=== PATIENT | female | born 1945 | race Caucasian/White ===

== ENCOUNTER 2016-09-19 18:26 | Emergency (ER) | payer MEDICARE, BC ==
[2016-09-19 18:41] VITALS: RESP 18; TEMP 98.4
[2016-09-19 19:03] LABS: APPEARANCE,URINE Slightly Cloudy; BILIRUBIN,URINE NEGATIVE (NEGATIVE); COLOR,URINE Yellow; GLUCOSE, URINE (UA) NEGATIVE (NEGATIVE); KETONES,URINE NEGATIVE (NEGATIVE); LEUKOCYTE ESTERASE ,URINE 3+ (NEGATIVE); NITRATE,URINE NEGATIVE (NEGATIVE); OCCULT BLOOD,URINE 1+ (NEG-TRACE)
[2016-09-19 19:09] LABS: WBC,URINE TNTC (0-5AV/HPF)
[2016-09-19 20:18] LABS: CALCIUM 9.1 mg/dl (8.5-10.1); POTASSIUM 3.7 mMol/L (3.5-5.1)
[2016-09-19 21:07] VITALS: BP 169/66; PULSE 62; O2SAT 99
== END 2016-09-19 20:56 | disposition home or self-care (01) | DRG 690 ==
LOC: ED 18:26
DX: N39.0 Urinary tract infection, site not specified (principal)
CPT/HCPCS: 80048; 81001; 87077; 87088; 87186; 99283

== ENCOUNTER 2016-10-20 15:04 | Outpatient (CLI) | payer MEDICARE, BC ==
[2016-09-19 21:07] VITALS: O2SAT 99
== END 2016-10-20 15:05 | disposition home or self-care (01) | DRG 558 ==
LOC: CONVCARE 15:04
PROVIDERS: ATTEND Orthopaedic Surgery
DX: M70.61 Trochanteric bursitis, right hip (principal)
CPT/HCPCS: 73502

== ENCOUNTER 2017-05-03 08:49 | Day surgery (SDC) | payer MEDICARE, BC ==
[2017-05-03] MEDS ORDERED: PROPOFOL 500 MG/50 ML EMU IV ONE (10:22)
[2017-05-03 11:46] VITALS: BP 160/68; PULSE 72; RESP 20; TEMP 98.4; O2SAT 100
== END 2017-05-03 12:10 | disposition home or self-care (01) | DRG 392 ==
LOC: SURG 08:49
PROVIDERS: ATTEND Surgery
DX: R19.5 Other fecal abnormalities (principal); K51.40 Inflammatory polyps of colon without complications; D12.5 Benign neoplasm of sigmoid colon; D12.3 Benign neoplasm of transverse colon
CPT/HCPCS: J2704

== ENCOUNTER 2017-08-03 12:21 | Outpatient (CLI) | payer MEDICARE, BC ==
[2017-05-03 11:46] VITALS: O2SAT 100
== END 2017-08-03 12:22 | disposition home or self-care (01) | DRG 554 ==
LOC: CONVCARE 12:21
PROVIDERS: ATTEND Orthopaedic Surgery
DX: M16.11 Unilateral primary osteoarthritis, right hip (principal); G56.02 Carpal tunnel syndrome, left upper limb

== ENCOUNTER 2017-08-17 07:02 | Day surgery (SDC) | payer MEDICARE, BC ==
[2017-08-17] MEDS ORDERED: FENTANYL 100MCG/2ML SOL ONE (07:35)
[2017-08-17] MEDS ORDERED: ONDANSETRON HCL 4 MG/2 ML SOL ONE (07:35)
[2017-08-17] MEDS ORDERED: PROPOFOL 500 MG/50 ML EMU IV ONE (07:35)
[2017-08-17] MEDS ORDERED: MIDAZOLAM 2 MG/2 ML SOL ONE (07:35)
[2017-08-17] MEDS ORDERED: LIDOCAINE HCL 2% MPF SOL ONE (07:42)
[2017-08-17] MEDS ORDERED: BUPIVACAINE HCL 0.5% MPF 10 ML SOL ONE (07:44)
[2017-08-17 09:06] VITALS: O2SAT 100
[2017-08-17 09:26] VITALS: BP 184/66; PULSE 61; RESP 18; TEMP 97.4
== END 2017-08-17 10:11 | disposition home or self-care (01) | DRG 74 ==
LOC: SURG 07:02
PROVIDERS: ATTEND Orthopaedic Surgery
DX: G56.02 Carpal tunnel syndrome, left upper limb (principal); E11.9 Type 2 diabetes mellitus without complications
CPT/HCPCS: 82962; J2250; J2405; J3010; A6402; J2704

== ENCOUNTER 2017-11-11 03:11 | Inpatient (IN) | payer MEDICARE, BC ==
[2017-11-11 03:42] LABS: BASOPHILS % (AUTO) 1 % (0-3); EOSINOPHILS % (AUTO) 0 % (0-9); HEMATOCRIT 35 % (35-47); MEAN CORPUSCULAR HGB CONC 34.9 gm/dl (32.0-36.0); MEAN CORPUSCULAR VOLUME 94 fL (81-99); MONOCYTES % (AUTO) 6.6 % (0-12); NEUTROPHILS % (AUTO) 85.5 % (37-80)
[2017-11-11 03:54] LABS: ALBUMIN 3.7 gm/dl (3.4-5.0); CALCIUM 9.2 mg/dl (8.5-10.1); POTASSIUM 3.2 mMol/L (3.5-5.1)
[2017-11-11] MEDS ORDERED: SODIUM CHLORIDE/KCL 20MEQ 1,000 ML IV SCH (04:30)
[2017-11-11] MEDS: PROCHLORPERAZINE EDISYLATE 5 MG/ML SOL IV PRN ×2 (05:24→10:56)
[2017-11-11] MEDS: MORPHINE SULFATE 10 MG/ML SOL IV PRN ×2 (05:24→09:48)
[2017-11-11] MEDS: ENOXAPARIN 30 MG SOL SC SCH ×2 (05:46→08:55)
[2017-11-11] MEDS: LEVOTHYROXINE SODIUM 50 MCG TAB PO SCH (06:09)
[2017-11-11] MEDS ORDERED: OMEPRAZOLE 20 MG CAPSULE PO SCH (07:00)
[2017-11-11 07:06] LABS: APPEARANCE,URINE Clear; BILIRUBIN,URINE NEGATIVE (NEGATIVE); COLOR,URINE Yellow; GLUCOSE, URINE (UA) TRACE (NEGATIVE); KETONES,URINE NEGATIVE (NEGATIVE); LEUKOCYTE ESTERASE ,URINE NEGATIVE (NEGATIVE); NITRATE,URINE NEGATIVE (NEGATIVE); OCCULT BLOOD,URINE NEGATIVE (NEG-TRACE); UROBILINOGEN,URINE 0.2 (0.2-1.0 EU)
[2017-11-11 07:16] LABS: RBC,URINE 0-2 (0-3AV/HPF); WBC,URINE 0-2 (0-5AV/HPF)
[2017-11-11] MEDS: FUROSEMIDE 20 MG TAB PO SCH (08:53)
[2017-11-11] MEDS: FERROUS GLUCONATE 324 MG TABLET PO SCH (08:54)
[2017-11-11] MEDS: CLONAZEPAM 0.5 MG TAB PO SCH ×3 (08:54→21:22)
[2017-11-11] MEDS: PANTOPRAZOLE SODIUM 40 MG ECT PO SCH (08:54)
[2017-11-11] MEDS: CITALOPRAM 20 MG TAB PO SCH (08:54)
[2017-11-11] MEDS: POTASSIUM CHLORIDE 10 MEQ TER PO SCH (08:54)
[2017-11-11] MEDS: CALCIUM CARBONATE 500 MG TAB PO SCH ×2 (08:54→21:24)
[2017-11-11] MEDS: METOPROLOL TARTRATE 50 MG TAB PO SCH (08:54)
[2017-11-11] MEDS: VANCOMYCIN HCL 125 MG CAP PO SCH ×4 (08:55→21:23)
[2017-11-11] MEDS ORDERED: LEVOTHYROXINE SODIUM PO SCH (09:00)
[2017-11-11] MEDS: ONDANSETRON HCL 4 MG/2 ML SOL IV PRN ×2 (09:15→20:17)
[2017-11-11] MEDS: FEBUXOSTAT 40 MG PO SCH (09:16)
[2017-11-11] MEDS: FENOFIBRATE 145 MG TAB PO SCH (09:16)
[2017-11-11] MEDS ORDERED: SODIUM CHLORIDE 0.9% 1000ML 1,000 ML IV SCH (11:30)
[2017-11-11 13:09] LABS: ALBUMIN 3.5 gm/dl (3.4-5.0); CALCIUM 8.8 mg/dl (8.5-10.1); POTASSIUM 3.9 mMol/L (3.5-5.1)
[2017-11-11] MEDS: SODIUM CHLORIDE 0.9% 1000ML 1,000 ML IV SCH (19:07)
[2017-11-11] MEDS: SIMVASTATIN 20 MG TAB PO SCH (21:22)
[2017-11-11] MEDS: UBIDECARENONE 100 MG CAPSULE PO SCH (21:24)
[2017-11-11] MEDS: EZETIMIBE 10 MG TAB PO SCH (21:24)
[2017-11-11] MEDS: NORTRIPTYLINE HCL 25 MG CAP PO SCH (21:25)
[2017-11-11] MEDS: NORTRIPTYLINE HCL 75 MG PO SCH (21:25)
[2017-11-11] MEDS: LOSARTAN POTASSIUM 50 MG TAB PO SCH (21:41)
[2017-11-11] MEDS: METOPROLOL TARTRATE 25 MG TAB PO SCH (21:41)
[2017-11-12] MEDS: SODIUM CHLORIDE 0.9% 1000ML 1,000 ML IV SCH ×4 (01:13→18:26)
[2017-11-12] MEDS: LEVOTHYROXINE SODIUM 50 MCG TAB PO SCH (06:22)
[2017-11-12 07:47] LABS: BASOPHILS % (AUTO) 1 % (0-3); EOSINOPHILS % (AUTO) 1 % (0-9); HEMATOCRIT 32 % (35-47); MEAN CORPUSCULAR HGB CONC 33.5 gm/dl (32.0-36.0); MEAN CORPUSCULAR VOLUME 97 fL (81-99); MONOCYTES % (AUTO) 7.5 % (0-12); NEUTROPHILS % (AUTO) 83.1 % (37-80)
[2017-11-12 07:53] LABS: POTASSIUM 3.6 mMol/L (3.5-5.1)
[2017-11-12] MEDS: POTASSIUM CHLORIDE 10 MEQ TER PO SCH (09:09)
[2017-11-12] MEDS: FUROSEMIDE 20 MG TAB PO SCH (09:09)
[2017-11-12] MEDS: METOPROLOL TARTRATE 50 MG TAB PO SCH (09:09)
[2017-11-12] MEDS: PANTOPRAZOLE SODIUM 40 MG ECT PO SCH (09:09)
[2017-11-12] MEDS: CITALOPRAM 20 MG TAB PO SCH (09:10)
[2017-11-12] MEDS: ENOXAPARIN 30 MG SOL SC SCH (09:10)
[2017-11-12] MEDS: CLONAZEPAM 0.5 MG TAB PO SCH ×3 (09:10→20:43)
[2017-11-12] MEDS: UBIDECARENONE 100 MG CAPSULE PO SCH ×2 (09:11→20:45)
[2017-11-12] MEDS: FERROUS GLUCONATE 324 MG TABLET PO SCH (09:11)
[2017-11-12] MEDS: FENOFIBRATE 145 MG TAB PO SCH (09:12)
[2017-11-12] MEDS: CALCIUM CARBONATE 500 MG TAB PO SCH ×2 (09:12→20:44)
[2017-11-12] MEDS: FEBUXOSTAT 40 MG PO SCH (09:12)
[2017-11-12] MEDS: VANCOMYCIN HCL 125 MG CAP PO SCH ×2 (09:15→14:25)
[2017-11-12] MEDS ORDERED: CEFTRIAXONE 1 GM PDS 1 GM in SODIUM CHLORIDE 0.9% 50 ML 50 ML IV SCH ×2 (11:00→12:00)
[2017-11-12] MEDS ORDERED: DOXYCYCLINE 100 MG PDS 100 MG in SODIUM CHLORIDE 0.9% 100 ML 100 ML IV SCH (11:00)
[2017-11-12] MEDS ORDERED: DOXYCYCLINE 100 MG IV ONE (12:16)
[2017-11-12] MEDS ORDERED: SODIUM CHLORIDE 0.9% 100 ML 100 ML IV ONE (12:16)
[2017-11-12] MEDS: DOXYCYCLINE 100 MG PDS 100 MG in SODIUM CHLORIDE 0.9% 100 ML 100 ML IV SCH (12:23)
[2017-11-12] MEDS ORDERED: SODIUM CHLORIDE 0.9% 50 ML 50 ML IV ONE (14:16)
[2017-11-12] MEDS ORDERED: CEFTRIAXONE 1 GM PDS ONE (14:16)
[2017-11-12] MEDS: LOSARTAN POTASSIUM 50 MG TAB PO SCH (20:43)
[2017-11-12] MEDS: EZETIMIBE 10 MG TAB PO SCH (20:44)
[2017-11-12] MEDS: SIMVASTATIN 20 MG TAB PO SCH (20:44)
[2017-11-12] MEDS: METOPROLOL TARTRATE 25 MG TAB PO SCH (20:45)
[2017-11-12] MEDS: NORTRIPTYLINE HCL 25 MG CAP PO SCH (20:46)
[2017-11-12] MEDS: NORTRIPTYLINE HCL 75 MG PO SCH (20:46)
[2017-11-13] MEDS ORDERED: DOXYCYCLINE 100 MG IV ONE (00:37)
[2017-11-13] MEDS ORDERED: SODIUM CHLORIDE 0.9% 100 ML 100 ML IV ONE (00:37)
[2017-11-13] MEDS: DOXYCYCLINE 100 MG PDS 100 MG in SODIUM CHLORIDE 0.9% 100 ML 100 ML IV SCH (00:58)
[2017-11-13] MEDS: SODIUM CHLORIDE 0.9% 1000ML 1,000 ML IV SCH ×3 (04:08→16:09)
[2017-11-13] MEDS: LEVOTHYROXINE SODIUM 50 MCG TAB PO SCH (06:11)
[2017-11-13 07:35] LABS: BASOPHILS % (AUTO) 1 % (0-3); EOSINOPHILS % (AUTO) 3 % (0-9); HEMATOCRIT 28 % (35-47); MEAN CORPUSCULAR VOLUME 97 fL (81-99); MONOCYTES % (AUTO) 8.9 % (0-12); NEUTROPHILS % (AUTO) 81.3 % (37-80)
[2017-11-13 07:36] LABS: ALBUMIN 2.5 gm/dl (3.4-5.0); CALCIUM 7.9 mg/dl (8.5-10.1); POTASSIUM 3.1 mMol/L (3.5-5.1)
[2017-11-13] MEDS: CLONAZEPAM 0.5 MG TAB PO SCH ×3 (08:09→20:38)
[2017-11-13] MEDS: FENOFIBRATE 145 MG TAB PO SCH (08:28)
[2017-11-13] MEDS: FEBUXOSTAT 40 MG PO SCH (08:28)
[2017-11-13] MEDS: UBIDECARENONE 100 MG CAPSULE PO SCH ×2 (08:29→20:45)
[2017-11-13] MEDS: CITALOPRAM 20 MG TAB PO SCH (08:32)
[2017-11-13] MEDS: POTASSIUM CHLORIDE 10 MEQ TER PO SCH (08:33)
[2017-11-13] MEDS: FERROUS GLUCONATE 324 MG TABLET PO SCH (08:33)
[2017-11-13] MEDS: METOPROLOL TARTRATE 50 MG TAB PO SCH (08:34)
[2017-11-13] MEDS: FUROSEMIDE 20 MG TAB PO SCH (08:34)
[2017-11-13] MEDS: CALCIUM CARBONATE 500 MG TAB PO SCH ×2 (08:34→20:39)
[2017-11-13] MEDS: PANTOPRAZOLE SODIUM 40 MG ECT PO SCH (08:35)
[2017-11-13] MEDS ORDERED: POTASSIUM CHLORIDE 2 MEQ/ML 30 MEQ, LIDOCAINE HCL 1% MDV 2 ML in SODIUM CHLORIDE 0.9% 5... IV ONE (08:50)
[2017-11-13] MEDS ORDERED: POTASSIUM CHLORIDE 2 MEQ/ML SOL IV ONE (09:52)
[2017-11-13] MEDS ORDERED: LIDOCAINE HCL 1% MPF SOL ONE (09:54)
[2017-11-13] MEDS: SODIUM CHLORIDE 0.9% FLUSH 10 ML SOL IV SCH ×3 (10:09→17:56)
[2017-11-13] MEDS: NORTRIPTYLINE HCL 25 MG CAP PO SCH (20:39)
[2017-11-13] MEDS: METOPROLOL TARTRATE 25 MG TAB PO SCH (20:39)
[2017-11-13] MEDS: NORTRIPTYLINE HCL 75 MG PO SCH (20:39)
[2017-11-13] MEDS: LOSARTAN POTASSIUM 50 MG TAB PO SCH (20:39)
[2017-11-13] MEDS: SIMVASTATIN 20 MG TAB PO SCH (20:40)
[2017-11-13] MEDS: EZETIMIBE 10 MG TAB PO SCH (20:40)
[2017-11-14] MEDS: SODIUM CHLORIDE 0.9% FLUSH 10 ML SOL IV SCH ×2 (02:40→09:17)
[2017-11-14] MEDS: LEVOTHYROXINE SODIUM 50 MCG TAB PO SCH (06:24)
[2017-11-14 07:32] LABS: CALCIUM 8.3 mg/dl (8.5-10.1); POTASSIUM 3.2 mMol/L (3.5-5.1)
[2017-11-14 07:37] LABS: BASOPHILS % (AUTO) 1 % (0-3); EOSINOPHILS % (AUTO) 5 % (0-9); HEMATOCRIT 29 % (35-47); MEAN CORPUSCULAR HGB CONC 35.1 gm/dl (32.0-36.0); MEAN CORPUSCULAR VOLUME 93 fL (81-99); MONOCYTES % (AUTO) 10.9 % (0-12); NEUTROPHILS % (AUTO) 68.7 % (37-80)
[2017-11-14] MEDS ORDERED: POTASSIUM CHLORIDE 2 MEQ/ML 40 MEQ, LIDOCAINE HCL 1% MDV 2 ML in SODIUM CHLORIDE 0.9% 5... IV ONE (08:51)
[2017-11-14] MEDS: UBIDECARENONE 100 MG CAPSULE PO SCH (09:00)
[2017-11-14] MEDS: CLONAZEPAM 0.5 MG TAB PO SCH ×2 (09:00→16:29)
[2017-11-14] MEDS: FUROSEMIDE 20 MG TAB PO SCH (09:01)
[2017-11-14] MEDS: FENOFIBRATE 145 MG TAB PO SCH (09:01)
[2017-11-14] MEDS: CITALOPRAM 20 MG TAB PO SCH (09:02)
[2017-11-14] MEDS: PANTOPRAZOLE SODIUM 40 MG ECT PO SCH (09:02)
[2017-11-14] MEDS: FERROUS GLUCONATE 324 MG TABLET PO SCH (09:02)
[2017-11-14] MEDS: FEBUXOSTAT 40 MG PO SCH (09:02)
[2017-11-14] MEDS: CALCIUM CARBONATE 500 MG TAB PO SCH (09:02)
[2017-11-14] MEDS: METOPROLOL TARTRATE 50 MG TAB PO SCH (09:02)
[2017-11-14] MEDS: POTASSIUM CHLORIDE 10 MEQ TER PO SCH (09:02)
[2017-11-14] MEDS ORDERED: LIDOCAINE HCL 1% MPF SOL ONE (09:09)
[2017-11-14] MEDS ORDERED: POTASSIUM CHLORIDE 2 MEQ/ML SOL IV ONE (09:10)
[2017-11-14 18:18] VITALS: BP 150/89; PULSE 77; RESP 18; TEMP 96.3; O2SAT 96
== END 2017-11-14 18:00 | disposition home or self-care (01) | DRG 438 ==
LOC: ED 03:11 → UNDOADMOB 04:27 → INTOOBSV 04:27 → ACUTE CARE 04:27 → UNDOADMOB 11-12 04:27 → INTOOBSV 11-12 11:30 → OBSVTOIN 11-12 11:30
PROVIDERS: ADMIT Family Medicine; ATTEND Family Medicine
DX: K85.90 Acute pancreatitis without necrosis or infection, unspecified (principal); J18.9 Pneumonia, unspecified organism; N17.9 Acute kidney failure, unspecified; N18.4 Chronic kidney disease, stage 4 (severe); K92.1 Melena; E11.22 Type 2 diabetes mellitus with diabetic chronic kidney disease; A08.39 Other viral enteritis; E87.6 Hypokalemia; R19.7 Diarrhea, unspecified
CPT/HCPCS: 36415; 71250; 74019; 74176; 80048; 80053; 81001; 82272; 82962; 84132; 85025; 87040; 94664; 99070; 99218; 99225; 99283; J0696; J0780; J2270; J2405; J3480; A9270; A9270-GY; J1650; J2001; J3490

== ENCOUNTER 2017-12-14 14:11 | Outpatient (CLI) | payer MEDICARE, BC ==
[2017-11-14 18:18] VITALS: O2SAT 96
== END 2017-12-14 14:12 | disposition home or self-care (01) | DRG 950 ==
LOC: CONVCARE 14:11
PROVIDERS: ATTEND Orthopaedic Surgery
DX: S70.01XD Contusion of right hip, subsequent encounter (principal); S92.351D Displaced fracture of fifth metatarsal bone, right foot, subsequent encounter for fracture with routine healing
CPT/HCPCS: 73502; 73630

== ENCOUNTER 2018-01-11 14:49 | Outpatient (CLI) | payer MEDICARE, BC ==
[2017-11-14 18:18] VITALS: O2SAT 96
== END 2018-01-11 14:50 | disposition home or self-care (01) | DRG 561 ==
LOC: CONVCARE 14:49
PROVIDERS: ATTEND Orthopaedic Surgery
DX: S92.351D Displaced fracture of fifth metatarsal bone, right foot, subsequent encounter for fracture with routine healing (principal); M70.61 Trochanteric bursitis, right hip; S70.01XD Contusion of right hip, subsequent encounter
CPT/HCPCS: 73630

== ENCOUNTER 2018-02-11 09:13 | Emergency (ER) | payer MEDICARE, BC ==
[2018-02-11 09:26] VITALS: BP 132/74; PULSE 76; RESP 16; TEMP 97.5; O2SAT 98
== END 2018-02-11 09:55 | disposition home or self-care (01) | DRG 603 ==
LOC: ED 09:13
DX: L03.116 Cellulitis of left lower limb (principal); E11.9 Type 2 diabetes mellitus without complications
CPT/HCPCS: 99282

== ENCOUNTER 2018-03-01 13:32 | Outpatient (CLI) | payer MEDICARE, BC ==
[2018-02-11 09:26] VITALS: O2SAT 98
== END 2018-03-01 13:33 | disposition home or self-care (01) | DRG 561 ==
LOC: CONVCARE 13:32
PROVIDERS: ATTEND Orthopaedic Surgery
DX: S92.351D Displaced fracture of fifth metatarsal bone, right foot, subsequent encounter for fracture with routine healing (principal); Z51.89 Encounter for other specified aftercare
CPT/HCPCS: 73630

== ENCOUNTER 2018-04-01 16:46 | Emergency (ER) | payer MEDICARE, BC ==
[2018-04-01] MEDS ORDERED: NITROGLYCERIN 0.4 MG TAB SL PRN (17:23)
[2018-04-01] MEDS ORDERED: NITROGLYCERIN 0.4 MG TAB SL ONE (17:24)
[2018-04-01 17:45] LABS: BASOPHILS % (AUTO) 0 % (0-3); EOSINOPHILS % (AUTO) 1 % (0-9); HEMATOCRIT 35 % (35-47); HEMOGLOBIN 11.5 gm/dl (12.0-15.5); LYMPHOCYTES % (AUTO) 8.675 % (10-50); MEAN CORPUSCULAR HEMOGLOBIN 31.3 pg (27.0-32.0); MEAN CORPUSCULAR VOLUME 95 fL (81-99); MONOCYTES % (AUTO) 2.2 % (0-12); NEUTROPHILS % (AUTO) 87.3 % (37-80)
[2018-04-01 18:14] LABS: THYROID STIMULATING HORMONE 2.183 uIU/ml (0.358-3.740); TROP I < 0.017 ng/ml (0.000-0.056)
[2018-04-01 18:15] LABS: CALCIUM 9.4 mg/dl (8.5-10.1); CARBON DIOXIDE 24.2 mEq/L (21-32); CREATININE 2.01 mg/dl (0.60-1.00); POTASSIUM 3.5 mMol/L (3.5-5.1)
[2018-04-01 18:16] LABS: ALBUMIN 4.4 gm/dl (3.4-5.0); BILIRUBIN,TOTAL 0.9 mg/dl (0.2-1.0); TOTAL PROTEIN 8.1 gm/dl (6.4-8.2)
[2018-04-01 18:35] LABS: APPEARANCE,URINE Clear; BILIRUBIN,URINE NEGATIVE (NEGATIVE); COLOR,URINE Yellow; GLUCOSE, URINE (UA) TRACE (NEGATIVE); KETONES,URINE NEGATIVE (NEGATIVE); LEUKOCYTE ESTERASE ,URINE NEGATIVE (NEGATIVE); NITRATE,URINE NEGATIVE (NEGATIVE); OCCULT BLOOD,URINE NEGATIVE (NEG-TRACE); PH,URINE 5.5; UROBILINOGEN,URINE 0.2 (0.2-1.0 EU)
[2018-04-01] MEDS ORDERED: ACETAMINOPHEN 500 MG 500 MG TAB PO ONE (18:46)
[2018-04-01] MEDS ORDERED: ACETAMINOPHEN 500 MG 500 MG TAB ONE (18:50)
[2018-04-01 19:36] LABS: BACTERIA TRACE (< 1+); CRYSTALS NEGATIVE (0-3 AVE/HPF); EPITHELIAL CELLS NEGATIVE (SQUAMOUS); RBC,URINE NEGATIVE (0-3AV/HPF); WBC,URINE NEGATIVE (0-5AV/HPF)
[2018-04-01 19:42] VITALS: RESP 20
[2018-04-01] MEDS ORDERED: PIPERACILLIN/TAZOBACT 3.375 GM PDS IV ONE (19:58)
[2018-04-01] MEDS ORDERED: PIPERACILLIN/TAZOBACT 3.375 GM 3 GM in SODIUM CHLORIDE 0.9% 100 ML 100 ML IV SCH (20:00)
[2018-04-01] MEDS ORDERED: IBUPROFEN 600 MG TAB ONE (20:42)
[2018-04-01] MEDS ORDERED: IBUPROFEN 600 MG TAB PO ONE (20:45)
[2018-04-01 21:00] VITALS: BP 135/66; PULSE 90; TEMP 103; O2SAT 95
== END 2018-04-01 20:53 | disposition short-term general hospital (02) | DRG 443 ==
LOC: ED 16:46
DX: K75.9 Inflammatory liver disease, unspecified (principal); E07.9 Disorder of thyroid, unspecified
CPT/HCPCS: 71250; 74176; 80053; 81001; 84443; 84484; 85025; 87040; 87077; 87186; 87205; 93005; 96365; 99285; 99291; J2543; A9270-GY

== ENCOUNTER 2018-05-27 07:28 | Emergency (ER) | payer MEDICARE, BC ==
[2018-05-27 08:40] VITALS: RESP 20
[2018-05-27 08:42] VITALS: TEMP 98.5
[2018-05-27 09:31] VITALS: BP 155/73; PULSE 78; O2SAT 96
== END 2018-05-27 09:13 | disposition home or self-care (01) | DRG 556 ==
LOC: ED 07:28
DX: M25.561 Pain in right knee (principal); M17.11 Unilateral primary osteoarthritis, right knee
CPT/HCPCS: 73560; 99282; 99283; L1830

== ENCOUNTER 2018-09-13 11:32 | Outpatient (CLI) | payer MEDICARE, BC ==
[2018-05-27 09:31] VITALS: O2SAT 96
== END 2018-09-13 11:33 | disposition home or self-care (01) | DRG 561 ==
LOC: CONVCARE 11:32
PROVIDERS: ATTEND Orthopaedic Surgery
DX: S92.342D Displaced fracture of fourth metatarsal bone, left foot, subsequent encounter for fracture with routine healing (principal); S92.352D Displaced fracture of fifth metatarsal bone, left foot, subsequent encounter for fracture with routine healing
CPT/HCPCS: 73630

== ENCOUNTER 2018-09-30 12:13 | Emergency (ER) | payer MEDICARE, BC ==
[2018-09-30 12:47] VITALS: BP 134/83; PULSE 67; RESP 16; TEMP 97.7; O2SAT 100
== END 2018-09-30 13:58 | disposition home or self-care (01) | DRG 563 ==
LOC: ED 12:13
DX: S43.402A Unspecified sprain of left shoulder joint, initial encounter (principal); W01.198A Fall on same level from slipping, tripping and stumbling with subsequent striking against other object, initial encounter
CPT/HCPCS: 73030; 99282; 99283

== ENCOUNTER 2018-12-16 12:11 | Emergency (ER) | payer MEDICARE, BC ==
[2018-12-16 12:41] LABS: APPEARANCE,URINE Cloudy; BILIRUBIN,URINE NEGATIVE (NEGATIVE); COLOR,URINE Yellow; GLUCOSE, URINE (UA) NEGATIVE (NEGATIVE); KETONES,URINE NEGATIVE (NEGATIVE); LEUKOCYTE ESTERASE ,URINE 2+ (NEGATIVE); NITRATE,URINE NEGATIVE (NEGATIVE); OCCULT BLOOD,URINE 2+ (NEG-TRACE); UROBILINOGEN,URINE 0.2 (0.2-1.0 EU)
[2018-12-16 12:48] VITALS: TEMP 97.8
[2018-12-16 12:51] LABS: BACTERIA 2+ (< 1+); CRYSTALS NEGATIVE (0-3 AVE/HPF); EPITHELIAL CELLS 0-1 (SQUAMOUS); WBC,URINE TNTC (0-5AV/HPF)
[2018-12-16 13:37] VITALS: BP 165/80; PULSE 100; RESP 14; O2SAT 100
== END 2018-12-16 13:28 | disposition home or self-care (01) | DRG 690 ==
LOC: ED 12:11
DX: N39.0 Urinary tract infection, site not specified (principal)
CPT/HCPCS: 81001; 87077; 87088; 87186; 99282